=== PATIENT | female | born 1935 | race Caucasian/White ===

== ENCOUNTER 2019-06-18 19:58 | Inpatient (IN) ==
[2019-06-18] MEDS ORDERED: VANCOMYCIN 1 GM/NS 1 GM/250 ML IVPB IV ONE (20:34)
[2019-06-18] MEDS ORDERED: ZOSYN 4.5 GM in NS 100 ML IV ONE (20:34)
[2019-06-18] MEDS ORDERED: NS 1,000 ML IV ONE ×2 (20:35→21:18)
[2019-06-18] MEDS ORDERED: SOLU-MEDROL IV ONE (20:36)
[2019-06-18 20:46] LABS: ALLEN TEST YES; BE 8.1 mmoll (-3.0-3.0); BLOOD TYPE ARTERIAL; HCO3-(ACT) 31.2 mmoll (20.0-26.0); METHB 0.9 % (0.0-1.5); O2HB 96.2 % (95.0-99.0); PCO2(98.6) 45 mmHg (35-45); PO2(98.6) 94 mmHg (60-100); SAMPLE BLOOD; SAO2 99.1 % (95.0-100.0); THB 12.5 g/dL (11.5-17.4); pH(98.6) 7.47 (7.35-7.45)
[2019-06-18 20:47] LABS: MODALITY NRB
--- NOTE | 2019-06-18 20:59 | EKG Report ---
Test Performed on : 06/18/2019 8:20:29 PM Test Reason : SOB Blood Pressure : / mmHG Vent. Rate : 121 BPM Atrial Rate : 121 BPM P-R Int : 200 ms QRS Dur : 092 ms QT Int : 322 ms P-R-T Axes : 094 028 019 degrees QTc Int : 457 ms Sinus tachycardia. Low voltage QRS Inferior infarct , age undetermined Abnormal ECG No previous ECGs available Unconfirmed Result
[2019-06-18 21:04] LABS: BASO# 0.04 X1000 (0.0-0.2); BASO% 0.2 % (0.0-0.8); HEMATOCRIT 38.6 % (37.0-47.0); IMM GRAN# 0.16 X1000 (0.0-0.04); IMM GRAN% 0.8 % (0.0-0.5); LYMPH# 1.71 X1000 (1.2-3.4); LYMPH% 8.9 % (20.5-51.1); MCH 29.4 PG (27-31); MCHC 31.1 g/dL (33-37); MCV 94.6 FL (81-99); MONO# 1.04 X1000 (0.11-0.59); MONO% 5.4 % (1.7-9.3); NEUT% 84.7 % (42.2-75.2); PLT 357 X1000 (130-400); RBC 4.08 XMIL (4.2-5.4); RDW 13.8 % (11.5-14.5); WBC 19.25 X1000 (4.8-10.8)
[2019-06-18 21:04] LABS: URINE SOURCE CATH
--- NOTE | 2019-06-18 21:05 | Diag Imaging Result Doc PS360 ---
CHEST-1 VIEW - 06/18/2019 INDICATION: SOB COMPARISON: 06/05/2019 FINDINGS: Stable cardiomegaly and pulmonary vascular congestion. There is worsening diffuse bilateral interstitial infiltrate compatible with pulmonary edema. There is a small to moderate left pleural effusion. IMPRESSION: Congestive heart failure. Electronically signed by Michele Rodriguez 06/18/2019 9:03 PM
[2019-06-18 21:08] LABS: BILIRUBIN URINE NEGATIVE (NEGATIVE); BLOOD URINE NEGATIVE (NEGATIVE); COLOR YELLOW; GLUCOSE URINE NEGATIVE (NEGATIVE); KETONE URINE NEGATIVE (NEGATIVE); LEUKOCYTES URINE NEGATIVE (NEGATIVE); NITRITE URINE NEGATIVE (NEGATIVE); PROTEIN URINE NEGATIVE (NEGATIVE); SP GRAVITY URINE 1.013; TURBIDITY URINE CLEAR (CLEAR); UROBILINOGEN URINE NORMAL (NORMAL)
[2019-06-18 21:09] LABS: UR EPITHELIAL CELLS <10 /HPF (<10); URINE BACTERIA NEGATIVE /HPF; URINE RBC <10 /HPF (<10); URINE WBC <10 /HPF (<10)
[2019-06-18 21:11] LABS: INR 1.05; PROTIME 13.9 Seconds (11.0-16.0); PTT 21.1 Seconds (22.3-41.8)
[2019-06-18] MEDS ORDERED: LASIX IV ONE (21:18)
[2019-06-18 21:34] LABS: ALB/GLOB RATIO 0.6; ALBUMIN 2.9 g/dL (3.5-5.0); CALCIUM 10.3 mg/dL (8.8-10.2); CREATININE 0.9 mg/dL (0.5-0.9); MAGNESIUM 0.9 mg/dL (1.5-2.7); POTASSIUM 4.3 mmol/L (3.5-5.1); TOTAL BILIRUBIN 0.34 mg/dL (0.20-1.00); TOTAL PROTEIN 7.6 g/dL (6.3-8.3)
[2019-06-18] MEDS ORDERED: MAGNESIUM SULFATE 2 GM/S.W.I. 2 GM/50 ML IVPB IV ONE (22:04)
[2019-06-18] MEDS ORDERED: HUMULIN R IV ONE (22:08)
--- NOTE | 2019-06-18 22:14 | PROVIDER DOCUMENTATION ---
This chart was entered by Bella Medina Scribe, acting as scribe for Rich Jon MD. HPI-Respiratory General - General Chief Complaint: Shortness of Breath Stated Complaint: sob Time Seen by Provider: 06/18/19 20:29 Source: patient, EMS Allergies/Adverse Reactions: Patient Allergies Allergy/AdvReac Type Severity Reaction Status Date / Time bee venom protein (honey bee) Allergy SWELLING Verified 06/18/19 20:50 - History of Present Illness-Resp Nature of Presenting Problem: pt is a 83 yr old female presenting via EMS from [facility] with complaint of shortness of breath, pt admits she is on 3LPM home o2, this evening began having increased shortness of breath, no relief with 4 duoneb tx. pt denies any other complaints Quality of Pain: reports: none Severity in ED: reports: moderate Onset/Duration: reports: this evening Timing: reports: still present Exposure: reports: unknown cause Cough Quality/Degree: reports: no cough Episode Frequency: occasional episodes Current Respiratory Medication Therapy: Initiated see nurses note Modifying Factors: improves with: albuterol nebulizer (no improvement), lying down (worsens), oxygen (no improvement) Associated Symptoms: reports: shortness of breath, wheezing. denies: chest pain/soreness, fever/chills, flu-like symptoms Similar Symptoms Previously?: No Recently seen or treated by another doctor?: No Review of Systems - Adult - REVIEW OF SYSTEMS - ADULT Constitutional: denies: chills, fever Eyes: reports: no symptoms reported Ears, Nose, Mouth & Throat: denies: ear pain, sinus problem, throat pain Cardiovascular: denies: chest pain, palpitations, syncope Respiratory: reports: dyspnea on exertion, shortness of breath, wheezing. denies: cough Gastrointestinal: reports: no symptoms reported Genitourinary: denies: dysuria, frequency, flank pain Musculoskeletal: denies: back pain, muscle aches, neck pain Integumentary: reports: no symptoms reported Neurological: denies: dizziness/vertigo, headache/migraines, syncope Psychiatric: reports: no symptoms reported Endocrine: reports: no symptoms reported Hematologic/Lymphatic: reports: no symptoms reported Allergic/Immunologic: reports: no symptoms reported All Other Systems: Reviewed and Negative Past History - Adult - PAST MEDICAL HISTORY-ADULT Review of Records: reports: Old Records Reviewed, Nursing Assessment Review, Medications Reviewed, Social history reviewed & non-contributory. Major Childhood Illnesses: reports: denies history Cardiovascular: reports: denies history Respiratory: reports: denies history Gastrointestinal: reports: denies history Obstetrical/Gynecological: reports: denies history Genitourinary: reports: denies history Musculoskeletal: reports: denies history Neurological: reports: denies history Endocrine/Immune: reports: denies history Other Conditions: reports: denies history - IMMUNIZATION STATUS Childhood Immunizations: See Nurse Assessment Flu Vaccine: See Nurse Assessment - FAMILY HISTORY Family History: reviewed, not pertinent - SOCIAL HISTORY Smoking: quit greater than 1 year Substance Use: denies Living Situation: care facility ([facility]) Physical Exam-General - PHYSICAL EXAM-ADULT Initial Vital Signs Reviewed: Yes - CONSTITUTIONAL General Appearance: alert, mild distress, obese - EYES Eyes: other (left pupil malformed) - HEAD, EARS, NOSE, MOUTH & THROAT HENMT: normocephalic/atraumatic, moist mucous membranes - NECK Neck: non-tender, full range of motion, supple, normal inspection - RESPIRATORY Respiratory: chest non-tender, rhonchi (all reyna), increased rate - CARDIOVASCULAR Cardiovascular: tachycardia. negative: no edema (bi LE edema) - GASTROINTESTINAL (ABDOMEN) Abdominal Exam: normal bowel sounds, hernia (reducable, non tender hernia) - LYMPHATIC Lymphatic: no adenopathy - MUSCULOSKELETAL Back Exam: normal inspection Extremity: normal range of motion, non-tender, pedal edema - SKIN Integumentary: normal color, normal turgor, warm/dry - NEUROLOGIC Neurologic: grossly normal, no motor/sensory deficits - PSYCHIATRIC Psych/Mental Status: normal mood/affect Progress - PLAN OF CARE/RESULTS Progress/Plan/Lab Results: Vital Signs - 8 hr 06/18/19 20:09 06/18/19 20:20 06/18/19 21:38 Temperature 99.2 F Pulse Rate 111 H 112 H 115 H Respiratory Rate 24 24 24 Blood Pressure 112/80 112/80 123/77 O2 Sat by Pulse Oximetry 90 L 96 98 06/18/19 21:05 Influenza Screen - Final Nasopharyngeal Laboratory Results - last 24 hr 06/18/19 06/18/19 06/18/19 20:34 20:38 20:38 WBC 19.25 H RBC 4.08 L Hgb 12.0 Hct 38.6 MCV 94.6 MCH 29.4 MCHC 31.1 L RDW Std Deviation 13.8 Plt Count 357 MPV 10.0 Immature Gran % (Auto) 0.8 H Neut % (Auto) 84.7 H Lymph % (Auto) 8.9 L Clay % (Auto) 5.4 Eos % (Auto) 0.0 Baso % (Auto) 0.2 Immature Gran # (Auto) 0.16 H Neut # (Auto) 16.30 H Lymph # (Auto) 1.71 Clay # (Auto) 1.04 H Eos # (Auto) 0.00 Baso # (Auto) 0.04 PT INR PTT (Actin FS) Specimen Type ARTERIAL Sample Site R RADIAL pH 7.47 H pCO2 45 pO2 94 HCO3 31.2 H Base Excess 8.1 H Oxyhemoglobin 96.2 ABG O2 Sat (Calculated) 17.0 ABG O2 Saturation 99.1 ABG Carboxyhemoglobin 2.00 ABG Methemoglobin 0.9 Andrey Test YES A-a O2 Difference 563.0 Total Hemoglobin 12.5 Lactate 3.50 H Liter Flow 15.0 Blood Gas Modality NRB FiO2 % 100.0 Sodium 131 L Potassium 4.3 Chloride 86 L Carbon Dioxide 30 Anion Gap 15 BUN 21 Creatinine 0.9 Estimated GFR/1.73 m2 60 BUN/Creatinine Ratio 23 Glucose 352 H Calculated Osmolality 280 Calcium 10.3 H Magnesium 0.9 L* Total Bilirubin 0.34 AST 22 ALT 13 Alkaline Phosphatase 75 Creatine Kinase 32 Troponin T High Sens Rpe-H-Gbqkjcefknj Pept Total Protein 7.6 Albumin 2.9 L Globulin 4.7 Albumin/Globulin Ratio 0.6 Plasma Lactate Urine Source Urine Color Urine Turbidity Urine pH Ur Specific [place] Urine Protein Ur Glucose (Stick) Ur Ketones (Stick) Urine Blood Urine Nitrite Urine Bilirubin Urobilinogen Dipstick Urine Leukocytes Urine WBC (Auto) Urine RBC (Auto) U Epithel Cells (Auto) Urine Bacteria (Auto) 06/18/19 06/18/19 06/18/19 20:38 20:38 20:38 WBC RBC Hgb Hct MCV MCH MCHC RDW Std Deviation Plt Count MPV Immature Gran % (Auto) Neut % (Auto) Lymph % (Auto) Clay % (Auto) Eos % (Auto) Baso % (Auto) Immature Gran # (Auto) Neut # (Auto) Lymph # (Auto) Clay # (Auto) Eos # (Auto) Baso # (Auto) PT 13.9 INR 1.05 PTT (Actin FS) 21.1 L Specimen Type Sample Site pH pCO2 pO2 HCO3 Base Excess Oxyhemoglobin ABG O2 Sat (Calculated) ABG O2 Saturation ABG Carboxyhemoglobin ABG Methemoglobin Andrey Test A-a O2 Difference Total Hemoglobin Lactate Liter Flow Blood Gas Modality FiO2 % Sodium Potassium Chloride Carbon Dioxide Anion Gap BUN Creatinine Estimated GFR/1.73 m2 BUN/Creatinine Ratio Glucose Calculated Osmolality Calcium Magnesium Total Bilirubin AST ALT Alkaline Phosphatase Creatine Kinase Troponin T High Sens 19 Mlt-C-Mgracbacjie Pept Total Protein Albumin Globulin Albumin/Globulin Ratio Plasma Lactate 3.7 H Urine Source Urine Color Urine Turbidity Urine pH Ur Specific [place] Urine Protein Ur Glucose (Stick) Ur Ketones (Stick) Urine Blood Urine Nitrite Urine Bilirubin Urobilinogen Dipstick Urine Leukocytes Urine WBC (Auto) Urine RBC (Auto) U Epithel Cells (Auto) Urine Bacteria (Auto) 06/18/19 06/18/19 20:38 21:00 WBC RBC Hgb Hct MCV MCH MCHC RDW Std Deviation Plt Count MPV Immature Gran % (Auto) Neut % (Auto) Lymph % (Auto) Clay % (Auto) Eos % (Auto) Baso % (Auto) Immature Gran # (Auto) Neut # (Auto) Lymph # (Auto) Clay # (Auto) Eos # (Auto) Baso # (Auto) PT INR PTT (Actin FS) Specimen Type Sample Site pH pCO2 pO2 HCO3 Base Excess Oxyhemoglobin ABG O2 Sat (Calculated) ABG O2 Saturation ABG Carboxyhemoglobin ABG Methemoglobin Andrey Test A-a O2 Difference Total Hemoglobin Lactate Liter Flow Blood Gas Modality FiO2 % Sodium Potassium Chloride Carbon Dioxide Anion Gap BUN Creatinine Estimated GFR/1.73 m2 BUN/Creatinine Ratio Glucose Calculated Osmolality Calcium Magnesium Total Bilirubin AST ALT Alkaline Phosphatase Creatine Kinase Troponin T High Sens Uii-S-Mnjnfvqikuz Pept 426 Total Protein Albumin Globulin Albumin/Globulin Ratio Plasma Lactate Urine Source CATH Urine Color YELLOW Urine Turbidity CLEAR Urine pH 6.0 Ur Specific [place] 1.013 Urine Protein NEGATIVE Ur Glucose (Stick) NEGATIVE Ur Ketones (Stick) NEGATIVE Urine Blood NEGATIVE Urine Nitrite NEGATIVE Urine Bilirubin NEGATIVE Urobilinogen Dipstick NORMAL Urine Leukocytes NEGATIVE Urine WBC (Auto) <10 Urine RBC (Auto) <10 U Epithel Cells (Auto) <10 Urine Bacteria (Auto) NEGATIVE Orders Category Date Time Status Cardiac Monitoring DIRECTED Care 06/18/19 20:33 Active IV Insertion ORDERED Care 06/18/19 20:33 Completed Notify Physician As Ordered Care 06/18/19 20:33 Active Nursing- Obtain EKG once Care 06/18/19 20:34 Active CHEST-1 VIEW [RAD] Stat Exams 06/18/19 20:33 Completed ABG [RESP] Routine Lab 06/18/19 20:34 Completed BLOOD CULTURE [BLDCUL] Stat Lab 06/18/19 20:38 Results CBC WITH DIFF [HEME] Stat Lab 06/18/19 20:38 Completed CK PROFILE [SP CHEM] Stat Lab 06/18/19 20:38 Completed COMPREHENSIVE METABOLIC PANEL [CHEM] Stat Lab 06/18/19 20:38 Completed INFLUENZA SCREEN A/B Stat Lab 06/18/19 21:05 Completed LACTATE, PLASMA [CHEM] Lab 06/18/19 23:45 Uncollected LACTATE, PLASMA [CHEM] Lab 06/19/19 02:45 Uncollected LACTATE, PLASMA [CHEM] Q3H Lab 06/18/19 20:38 Completed MAGNESIUM [CHEM] Stat Lab 06/18/19 20:38 Completed PRO B-NATRIURETIC PEPTIDE Stat Lab 06/18/19 20:38 Completed PROTIME WITH INR [COAG] Stat Lab 06/18/19 20:38 Completed PTT [COAG] Stat Lab 06/18/19 20:38 Completed TROPONIN T HIGH SENSITIVITY Stat Lab 06/18/19 20:38 Completed URINALYSIS W/POSS RFLX CULT [URINALYSIS] Stat Lab 06/18/19 21:00 Completed 0.9% Sodium Chloride Inj [Ns] 1,000 ml Med 06/18/19 20:35 Discontinued IV 999 mls/hr 0.9% Sodium Chloride Inj [Ns] 1,000 ml Med 06/18/19 21:18 Active IV 999 mls/hr Furosemide [Lasix] Med 06/18/19 21:18 Discontinued 80 mg IV NOW ONE Magnesium Sulfate 2 gm/50 ml Over 1 Hr Med 06/18/19 22:04 Ordered Magnesium Sulfate 2 gm/S.w.i. 2 gm in 50 ml IV NOW Methylprednisolone Sod Succ [Solu-Medrol] Med 06/18/19 20:36 Discontinued 125 mg IV NOW ONE Piperacillin/Tazobactam [Zosyn] 4.5 gm Med 06/18/19 20:34 Discontinued 0.9% Sodium Chloride Inj [Ns] 100 ml IV NOW Vancomycin 1 gm/Ns Med 06/18/19 20:34 Discontinued 1 gm in 250 ml IV NOW Oxygen Device Stat Oth 06/18/19 20:33 Active EKG [EKG] Stat Ther 06/18/19 20:34 Draft Result Diagrams: 06/18/19 20:38 06/18/19 20:38 - REASSESSMENT Reassessment #1 Time Reassessed: 22:07 Status: improving (with oxgen. GIvne Vanc/zosyn for sepsis. GIven IV lasix for CHF, given Mag Sulfate for hypomagnesemia, given IV insulin for hyperglycemia) - EKG 1 Time of EKG reading by physician:: 20:29 EKG Read and Signed by:: Rich Jon EKG Interpretation (*Must complete 3 of following elements*): Abnormal (inferior infacrt-age undetermined 1st degree av block) Rate: 121 Rhythm: sinus tach QRS: other (low voltage) ST Wave: non-specific ST changes - XRAY 1 XRAY Study: Chest Impression: Abnormal, See EMR Report ( CHEST-1 VIEW - 06/18/2019 INDICATION: SOB COMPARISON: 06/05/2019 FINDINGS: Stable cardiomegaly and pulmonary vasc ular congestion. There is worsening diffuse bilateral interstitial infiltrate compatible with pulmonary edema. There is a small to moderate left pleural effusion. IMPRESSION: Congestive heart failure. Electronically signed by Michele Rodriguez 06/18/2019 9:03 PM [id number]/[id number] Interpreting Physician: Michele Rodriguez MD Dictated Date/Time: 06/18/192101 cc: Rich Jon MD;) - CONSULTS/PCP/HOSPITALIST Notification #1 *Consult/PCP/Hospitalist*: Bonilla Time Discussed: 22:13 Consult Disposition: Will see in ED, Admit Departure - Departure Date of Disposition Decision: 06/18/19 Time of Disposition Decision: 22:13 DIAGNOSIS: Respiratory distress, acute, Sepsis due to pneumonia, Hypomagnesemia syndrome, Type 2 diabetes mellitus with hyperglycemia, without long-term current use of insulin Disposition: ADMITTED INPATIENT 09 Certified Medical Emergency: Emergent Condition: Fair - Critical Care Note This patient required my direct & personal management of CC.: Yes Total Time (mins): 40 Critical Care Statement: This patient required my direct personal management to treat or rule out processes, the absence of which, could potentiallly result in sudden, clinically significant life or limb threatening deterioration. Attestation - Physician/ MO Attestation Patient care was provided by Advanced Practice Provider:: No The physician spent face to face time with patient:: Yes Advanced Practice Provider documentation review:: Supervising physician onsite a nd consulted in the evaluation and care of this patient. The physician did have a face to face encounter with the patient. This chart was documented by the indicated scribe, (Bella Medina, Aurelio) and accurately reflects the services I performed and decisions made by me, Rich Jon MD, as attested by the provider's signature.
[2019-06-19] MEDS ORDERED: ZOFRAN IV PRN (00:08)
[2019-06-19] MEDS ORDERED: VANCOMYCIN IV PER PHARMACY MISC SCH (00:08)
[2019-06-19] MEDS ORDERED: VANCOMYCIN 1 GM/NS 1 GM/250 ML IVPB IV ONE (01:00)
[2019-06-19] MEDS: ZOSYN 3.375 GM in NS 50 ML IV SCH ×4 (02:59→22:19)
[2019-06-19] MEDS: LASIX IV SCH ×2 (02:59→16:45)
[2019-06-19 04:59] LABS: BASO# 0.03 X1000 (0.0-0.2); BASO% 0.2 % (0.0-0.8); HEMATOCRIT 37.9 % (37.0-47.0); HEMOGLOBIN 11.8 g/dL (12.0-16.0); IMM GRAN% 0.7 % (0.0-0.5); LYMPH# 0.78 X1000 (1.2-3.4); LYMPH% 5.4 % (20.5-51.1); MCH 29.6 PG (27-31); MCHC 31.1 g/dL (33-37); MONO# 0.23 X1000 (0.11-0.59); MONO% 1.6 % (1.7-9.3); MPV 9.8 FL (7.4-10.4); NEUT% 92.1 % (42.2-75.2); PLT 300 X1000 (130-400); RBC 3.99 XMIL (4.2-5.4); RDW 13.8 % (11.5-14.5); WBC 14.44 X1000 (4.8-10.8)
[2019-06-19 05:03] LABS: CALCIUM 9.9 mg/dL (8.8-10.2); CREATININE 0.9 mg/dL (0.5-0.9); POTASSIUM 3.7 mmol/L (3.5-5.1)
--- NOTE | 2019-06-19 08:08 | HISTORY AND PHYSICAL ---
PRIMARY CARE PHYSICIAN: None. CHIEF COMPLAINT: Shortness of breath. HISTORY OF PRESENTING ILLNESS: An 83-year-old female who is a resident of [facility], with a history of gout, gout, dementia, hyperlipidemia, hypertension, CHF, and COPD, who was brought to the emergency department due to the patient having shortness of breath. While the patient was at the retirement, she was desaturating, and staff members stated that she had a fever. She was evaluated in the emergency department. She had imaging done, which did raise the possibility of pneumonia. Subsequently, she will require admission for further management. During initial evaluation, it was also found that she had low magnesium, and this was replaced in the ED. The patient is a poor historian. Most of the history is obtained from her daughter. PAST MEDICAL HISTORY: Includes hypothyroidism, gout, GERD, COPD, rheumatoid arthritis, dementia, CHF, hyperlipidemia, hypertension. PAST SURGICAL HISTORY: Cataract surgery and possible right eye surgery. ALLERGIES: Bee venom. CURRENT MEDICATIONS: She does not recall, and nursing staff will reconcile. SOCIAL HISTORY: She is a former smoker. No history of alcohol or illicit drug use. FAMILY HISTORY: No history of coronary disease. REVIEW OF SYSTEMS: Limited. PHYSICAL EXAMINATION: GENERAL: The patient is resting more comfortably now. VITAL SIGNS: Temperature 99.2 degrees, pulse 111, respirations 24, blood pressure 112/80. HEENT: Atraumatic, normocephalic. NECK: No masses. CHEST: Rhonchi. CARDIOVASCULAR: Regular rate and rhythm. ABDOMEN: Soft. Positive bowel sounds. EXTREMITIES: Trace edema. NEUROLOGIC: She is awake, alert, oriented x1. : No bladder distention. SKIN: Warm. IMAGING AND LABORATORY DATA: WBCs 19.25, hemoglobin 12.1, hematocrit 38.6, platelets 357,000. Sodium 131, potassium 4.3, chloride 86, CO2 is 30, BUN is 21, creatinine 0.9, glucose 352. Magnesium is 0.9. Chest x-ray shows CHF. ASSESSMENT: An 83-year-old, elderly female with a history of hypothyroidism, gout, chronic obstructive pulmonary disease, dementia, and hypertension, who was brought to the emergency department due to the patient having shortness of breath. She was evaluated in the emergency department, and it was suspected that possibly she had pneumonia. Subsequently, she will require admission for further management. 1. Probable pneumonia. 2. Early sepsis. 3. Suspected congestive heart failure, unspecified. 4. Hypomagnesemia. 5. Hypertension. PLAN: 1. Will admit the patient to medical floor with telemetry. 2. Will check blood cultures. Start the patient on IV antibiotics. 3. Will continue with gentle diuresis with Lasix, and check echocardiogram, and consult tax senior associate. 4. Will replace her magnesium, and monitor. 5. Will monitor blood pressure closely. 6. Put the patient on DVT prophylaxis with SCDs. 7. Will continue to follow, reassess, and make further recommendations based on the patient's clinical course. cc: Travis Crystal MD
[2019-06-19 10:09] LABS: HEMOGLOBIN A1C 8.1 % (4.8-6.0)
[2019-06-19] MEDS ORDERED: HUMALOG SUBQ SCH (11:00)
[2019-06-19] MEDS: HUMALOG SUBQ SCH ×3 (11:30→22:21)
--- NOTE | 2019-06-19 12:50 | PROGRESS NOTE ---
DATE: 06/19/2019 INTERVAL HISTORY: Patient with still pretty significant nonproductive cough and dyspnea with minimal exertion. She remains afebrile. No acute events overnight. REVIEW OF SYSTEMS: Negative except as per interval history. LABORATORY: WBC 14.4, hemoglobin 11.8, hematocrit 37.9, platelets 300. Sodium 139, potassium 3.7, BUN 20, creatinine 0.9, glucose 467. Lactate 2.2. VITAL SIGNS: T-max 98.9, pulse 73, blood pressure 122/50, O2 saturation 100% on nonrebreather. PHYSICAL EXAMINATION: General: No acute distress. Vital signs: As above. HEENT: Normocephalic, atraumatic. On nonrebreather. Cardiac: Regular rate and rhythm. No murmurs noted. Pulmonary: Diffuse rales and rhonchi throughout. Slightly decreased air entry. Abdomen: Soft, nontender, nondistended, bowel sounds positive. Extremities: Peripheral pulses intact, trace to 1+ pitting edema of bilateral legs. Neurologic: Cranial nerves grossly intact. No focal deficits found. Psychiatric: Normal mood and affect. Awake, alert, cooperative. ASSESSMENT AND PLAN: 1. [id number] hypoxic respiratory failure, [id number] congestive heart failure, possible pneumonia. The patient admitted with worsening dyspnea and hypoxia beyond baseline. Patient on 3 L of oxygen at home. Chest x-ray showing pulmonary vascular congestion, worsening diffuse bilateral infiltrates most consistent with pulmonary edema, but patient also with marked leukocytosis and BNP only mildly elevated at 426 so there is concern for a component of pneumonia as well. Giving Lasix for diuresis and on empiric antibiotics with vancomycin and Zosyn, which we will continue. No wheezing currently. Obtaining echocardiogram to clarify patient's ejection fraction. There is no old echocardiogram in our system. Continue monitoring closely. 2. Diabetes, pretty significant hyperglycemia. Starting on low-dose basal insulin and sliding scale and will monitor. 3. Hyponatremia, resolved. Will monitor. 4. Hypomagnesemia currently being repleted. Will recheck in the morning. 5. Elevated lactate, resolved. 6. Hypothyroidism. Continue Synthroid. 7. Chronic pain. Restart home Tramadol. 8. chronic obstructive pulmonary disease. patient with history of chronic obstructive pulmonary disease. on a couple inhalers at home and on 3 L of oxygen so Not wheezing and reasonable air entry currently. She does not appear to be in exacerbation. Monitor. MTDD
[2019-06-19] MEDS: LANTUS INSULIN SUBQ SCH (16:39)
[2019-06-19] MEDS: LIPITOR PO SCH (22:20)
[2019-06-19] MEDS: ULTRAM PO PRN (22:21)
--- NOTE | 2019-06-19 23:56 | ECHO REPORT ---
ORDER DATE: 06/19/2019 MEASUREMENTS: Septal thickness 0.9. Left ventricular internal diameter in diastole 5.4, posterior wall thickness 0.9. Left ventricular internal diameter in systole 3.5, aortic root 3.5, left atrium 4.4. SUMMARY: 1. Technically difficult study due to limited acoustic window quality. 2. The aortic valve is trileaflet and opens adequately on 2-dimensional images. The peak gradient across the aortic valve by Doppler is less than 10 mmHg. There is very mild aortic regurgitation. Mitral and tricuspid valves are without evidence of structural abnormality while pulmonic valve is not well demonstrated. There is trace mitral regurgitation and trace tricuspid regurgitation. The aortic root is normal size. 3. Normal left ventricular dimensions demonstrated. The estimated left ventricular ejection fraction appears to be at least 60%. No obvious regional wall motion abnormality can be appreciated. The left atrium is mildly enlarged. The right atrium and right ventricle are normal in size with normal right ventricular systolic function. 4. No pericardial effusion. 5. Appearance of inferior vena cava suggests normal central venous pressure. CONCLUSIONS: 1. Technically difficult study. 2. Very mild aortic regurgitation. 3. Normal left ventricular systolic function without wall motion abnormality evident. 4. Mild left atrial enlargement. cc: MD Travis Crowley MD
[2019-06-20] MEDS: ZOSYN 3.375 GM in NS 50 ML IV SCH ×6 (03:00→20:59)
[2019-06-20] MEDS: LASIX IV SCH ×2 (04:30→18:40)
[2019-06-20] MEDS: HUMALOG SUBQ SCH ×4 (06:43→20:59)
[2019-06-20] MEDS: SYNTHROID PO SCH (06:44)
[2019-06-20 08:25] LABS: BASO# 0.03 X1000 (0.0-0.2); BASO% 0.2 % (0.0-0.8); EOS% 0.7 % (0.0-10.0); HEMATOCRIT 37.6 % (37.0-47.0); HEMOGLOBIN 11.5 g/dL (12.0-16.0); IMM GRAN# 0.12 X1000 (0.0-0.04); IMM GRAN% 0.8 % (0.0-0.5); LYMPH# 2.23 X1000 (1.2-3.4); LYMPH% 15.8 % (20.5-51.1); MCH 29.1 PG (27-31); MCHC 30.6 g/dL (33-37); MCV 95.2 FL (81-99); MONO% 5.7 % (1.7-9.3); MPV 9.9 FL (7.4-10.4); NEUT# 10.86 X1000 (1.4-6.5); NEUT% 76.8 % (42.2-75.2); PLT 324 X1000 (130-400); RBC 3.95 XMIL (4.2-5.4); RDW 13.8 % (11.5-14.5); WBC 14.14 X1000 (4.8-10.8)
[2019-06-20] MEDS: CYMBALTA PO SCH (08:36)
[2019-06-20] MEDS: LANTUS INSULIN SUBQ SCH (08:37)
[2019-06-20] MEDS: ZYLOPRIM PO SCH (08:37)
[2019-06-20] MEDS: ASPIRIN PO SCH (08:37)
[2019-06-20 09:05] LABS: AGAP 9; BUN 21 mg/dL (8-22); CALCIUM 9.5 mg/dL (8.8-10.2); CHLORIDE 92 mmol/L (98-107); COSMO 286; CREATININE 0.8 mg/dL (0.5-0.9); ESTIMATED GFR > 60; GLUCOSE 194 mg/dL (70-104); MAGNESIUM 1.3 mg/dL (1.5-2.7); POTASSIUM 2.8 mmol/L (3.5-5.1); SODIUM 139 mmol/L (136-145); TCO2 38 mmol/L (25-35)
[2019-06-20] MEDS: VANCOMYCIN 1,800 MG in NS 500 ML IV SCH (14:05)
--- NOTE | 2019-06-20 18:51 | PROGRESS NOTE ---
DATE: 06/20/2019 SUBJECTIVE: This morning Ms. Michelle referred to be doing fairly okay. Still continues to be coughing, bringing up some yellowish sputum but otherwise, no new complaints. OBJECTIVE: Vital signs: Blood pressure is 140/52, pulse of 60, respirations 24, temperature 97.6 degrees. General: Ms. Michelle is an 83-year-old female. She is in bed, no distress. HEENT: Mucosa is pink and moist. Anicteric. Acyanotic. Neck: Supple. Chest: Good air entry bilaterally. There are bilateral crackles in the posterior lung reyna. Cardiovascular: Regular rate and rhythm. There are no murmurs, no rubs, no gallops. GI: Abdomen was soft, distended. There is a small umbilical hernia noted. Extremities: No pedal edema. CONTROL TOWER OPERATOR: Patient is awake, alert, and oriented. DIAGNOSTIC STUDIES: The patient's chest x-ray yesterday did show congestive heart failure. Echocardiogram shows an ejection fraction of 60% without any motion abnormality. ASSESSMENT: 1. Acute on chronic hypoxemic respiratory failure. Normally Ms. Michelle uses 2 L of supplemental oxygen at home. Up until yesterday she was on 15 Venturi mask. This has been transitioned down to about 3 L this morning. 2. Pulmonary edema, presumably from congestive heart failure with preserved ejection fraction. 3. Multifocal pneumonia. Patient has been started on Zosyn with vancomycin. 4. Diabetes mellitus. Presenting A1c of 8.1. Patient is on insulin regimen for now. 5. Electrolyte abnormality including hypomagnesemia and hypopotassemia. This will be replaced. cc: Tj Lee MD
[2019-06-20] MEDS: LIPITOR PO SCH (20:59)
[2019-06-21] MEDS: ZOSYN 3.375 GM in NS 50 ML IV SCH ×4 (04:01→20:59)
[2019-06-21] MEDS: LASIX IV SCH (04:02)
[2019-06-21] MEDS: HUMALOG SUBQ SCH ×4 (06:12→20:56)
[2019-06-21] MEDS: SYNTHROID PO SCH (06:13)
[2019-06-21 08:13] LABS: BASO# 0.04 X1000 (0.0-0.2); BASO% 0.4 % (0.0-0.8); EOS# 0.14 X1000 (0.0-0.7); EOS% 1.3 % (0.0-10.0); HEMATOCRIT 38.8 % (37.0-47.0); HEMOGLOBIN 12.1 g/dL (12.0-16.0); IMM GRAN% 0.9 % (0.0-0.5); LYMPH# 1.44 X1000 (1.2-3.4); MCH 29.7 PG (27-31); MCHC 31.2 g/dL (33-37); MCV 95.1 FL (81-99); MONO% 5.4 % (1.7-9.3); MPV 9.8 FL (7.4-10.4); NEUT# 8.79 X1000 (1.4-6.5); PLT 348 X1000 (130-400); RBC 4.08 XMIL (4.2-5.4); RDW 13.7 % (11.5-14.5); WBC 11.11 X1000 (4.8-10.8)
[2019-06-21 08:41] LABS: AGAP 12; BUN 19 mg/dL (8-22); CALCIUM 9.9 mg/dL (8.8-10.2); CHLORIDE 91 mmol/L (98-107); COSMO 285; CREATININE 0.8 mg/dL (0.5-0.9); ESTIMATED GFR > 60; GLUCOSE 194 mg/dL (70-104); POTASSIUM 2.6 mmol/L (3.5-5.1); SODIUM 139 mmol/L (136-145); TCO2 36 mmol/L (25-35)
[2019-06-21] MEDS: CYMBALTA PO SCH (09:30)
[2019-06-21] MEDS: ZYLOPRIM PO SCH (09:31)
[2019-06-21] MEDS: ASPIRIN PO SCH (09:31)
[2019-06-21] MEDS: LANTUS INSULIN SUBQ SCH (09:36)
--- NOTE | 2019-06-21 10:47 | Diag Imaging Result Doc PS360 ---
EXAM: CT THORAX W/CONTRAST 06/21/2019 HISTORY: Respiratory failure TECHNIQUE: This exam was performed using automated exposure control, adjustment of mA or kV according to patient size, and/or use of iterative reconstruction technique. COMMENT: There are no previous studies available for comparison. There are atherosclerotic calcifications in the aorta and coronary arteries. There is no evidence of aortic aneurysm or dissection. There is good opacification of most of the pulmonary artery branches and no definite filling defects are demonstrated. There is severe COPD. Some pleural thickening is seen posteriorly over the left upper lobe. There is apparent pleural and parenchymal fibrosis laterally in the right upper lobe around image 134. There is a somewhat spiculated opacity in the right upper lobe on image 57. There is atelectasis or fibrosis in the medial right middle lobe. There are alveolar opacities posteriorly in both lower lobes particularly the left lower lobe. The liver is somewhat hypodense suggesting fatty change. There is apparent hyperplasia of the left adrenal gland. No evidence of significant adenopathy is present. The regional skeleton is intact. IMPRESSION: Bilateral lower lobe pneumonia. Pneumonia versus mass in the right upper lobe. Severe COPD. Comparison with previous studies if available would be helpful. Otherwise, advise follow-up examinations following treatment. Electronically signed by Dany Dumont 06/21/2019 10:45 AM
[2019-06-21] MEDS ORDERED: PREDNISONE PO ONE (12:57)
[2019-06-21] MEDS ORDERED: KLOR-CON PO ONE (12:59)
[2019-06-21] MEDS ORDERED: DUONEB (A & A) INH PRN (13:07)
--- NOTE | 2019-06-21 15:08 | EKG Report ---
Test Performed on : 06/21/2019 2:38:47 PM Test Reason : Abnormal telemetry reading Blood Pressure : / mmHG Vent. Rate : 089 BPM Atrial Rate : 089 BPM P-R Int : 200 ms QRS Dur : 098 ms QT Int : 382 ms P-R-T Axes : 000 020 028 degrees QTc Int : 464 ms Sinus rhythm. with marked sinus arrhythmia. with occasional premature ventricular complexes. Inferior infarct (cited on or before 18-JUN-2019) ST & T wave abnormality, consider anterior ischemia Abnormal ECG When compared with ECG of 18-JUN-2019 20:20, (Unconfirmed) premature ventricular complexes. are now present Confirmed by Channing Conway MD ([id number]) on 06/22/2019 12:17:00 PM
[2019-06-21] MEDS: ANORO ELLIPTA 62.5-25 MCG INH INH SCH ×2 (15:46)
[2019-06-21] MEDS: DUONEB (A & A) INH SCH ×3 (15:48→22:49)
--- NOTE | 2019-06-21 18:21 | PROGRESS NOTE ---
DATE: 06/21/2019 SUBJECTIVE: I have seen Ms. Michelle today. The daughter was at the bedside at the time of the encounter. Ms. Michelle refers to be feeling a little better. She said her breathing has significantly improved. However, she is still coughing up some yellowish sputum. OBJECTIVE: Vital signs: Blood pressure is 115/51, pulse of 87, respirations 14, temperature is 97.4 degrees. Patient is saturating 96% and kind of drifted down to about 86 later on today. General: Ms. Michelle is an 83-year-old elderly female. She is in bed in no distress. Mucosa is pink and moist. Anicteric. Acyanotic. Neck: Supple. Chest: Air entry is bilaterally reduced. There is still diffuse end expiratory rhonchi and some crackles. Cardiovascular: Regular rate and rhythm. No murmurs, no rubs, no gallops. GI: Abdomen is soft, nontender. Bowel sounds present. Extremities: No pedal edema. POTATO CHIP FRYER: Patient is awake, alert, oriented. There is no focal deficit. LABORATORY DATA: WBC is 11.11, hemoglobin is 12.1, platelet count of 348,000. Chemistry is also reviewed. Potassium is 2.6, bicarb is 26, glucose is 194. A1c was 8.1. DIAGNOSTIC STUDIES: His a CT scan of the lungs which was done today did show bilateral lower lobe pneumonia, some pneumonia versus mass in the right upper lobe, severe COPD. ASSESSMENT: 1. Acute on chronic hypoxemic respiratory failure. Patient continues to be on supplemental oxygen. She normally uses 2 L of oxygen at home. We are going to continue titrating it to her baseline. 2. Multifocal lower lobe pneumonias. Patient is on Zosyn and vancomycin. We will get a sputum culture to see if that can guide us with a treatment. 3. Severe COPD with moderate exacerbation on admission. Patient is on bronchodilation therapy, antibiotics. Steroids have been started today. 4. Diabetes mellitus. The patient is on insulin regimen. 5. Electrolyte abnormality. We will continue to replace. Disposition Ms. Michelle has a bed available at [facility] for rehab and possibly half-way. She is still on a lot of supplemental oxygen, so we are going to continue with her IV antibiotics for another day and start her on steroids and re-evaluate her tomorrow to see if she will be ready for discharge. The patient has been notified. The daughter at the bedside has also been notified and they are both okay to be discharged tomorrow if all stable. Patient will need to repeat CT scan chest after antimicrobial therapy to follow up on the right upper lobe findings. cc: Tj Lee MD MTDD
[2019-06-21] MEDS: LIPITOR PO SCH (20:56)
[2019-06-22] MEDS: VANCOMYCIN 1,800 MG in NS 500 ML IV SCH (01:40)
[2019-06-22] MEDS: ZOSYN 3.375 GM in NS 50 ML IV SCH ×4 (05:12→21:34)
[2019-06-22] MEDS: HUMALOG SUBQ SCH ×4 (06:37→21:35)
[2019-06-22] MEDS: SYNTHROID PO SCH (06:37)
[2019-06-22] MEDS: DUONEB (A & A) INH SCH ×5 (07:46→23:42)
[2019-06-22] MEDS: ANORO ELLIPTA 62.5-25 MCG INH INH SCH (07:47)
[2019-06-22 08:25] LABS: BASO# 0.05 X1000 (0.0-0.2); BASO% 0.5 % (0.0-0.8); EOS# 0.16 X1000 (0.0-0.7); EOS% 1.7 % (0.0-10.0); HEMATOCRIT 37.6 % (37.0-47.0); HEMOGLOBIN 11.6 g/dL (12.0-16.0); IMM GRAN# 0.17 X1000 (0.0-0.04); IMM GRAN% 1.8 % (0.0-0.5); LYMPH# 2.17 X1000 (1.2-3.4); LYMPH% 23.1 % (20.5-51.1); MCH 29.3 PG (27-31); MCHC 30.9 g/dL (33-37); MCV 94.9 FL (81-99); MONO% 6.4 % (1.7-9.3); MPV 9.4 FL (7.4-10.4); NEUT# 6.25 X1000 (1.4-6.5); NEUT% 66.5 % (42.2-75.2); PLT 334 X1000 (130-400); RBC 3.96 XMIL (4.2-5.4)
[2019-06-22] MEDS: CYMBALTA PO SCH (08:38)
[2019-06-22] MEDS: PREDNISONE PO SCH (08:38)
[2019-06-22] MEDS: ASPIRIN PO SCH (08:38)
[2019-06-22] MEDS: ZYLOPRIM PO SCH (08:38)
[2019-06-22] MEDS: LANTUS INSULIN SUBQ SCH (08:41)
[2019-06-22 08:48] LABS: AGAP 11; BUN 13 mg/dL (8-22); CALCIUM 9.7 mg/dL (8.8-10.2); CHLORIDE 97 mmol/L (98-107); COSMO 285; CREATININE 0.6 mg/dL (0.5-0.9); ESTIMATED GFR > 60; GLUCOSE 135 mg/dL (70-104); POTASSIUM 2.8 mmol/L (3.5-5.1); SODIUM 142 mmol/L (136-145); TCO2 34 mmol/L (25-35)
[2019-06-22] MEDS ORDERED: KLOR-CON PO ONE (13:48)
[2019-06-22] MEDS ORDERED: CALMOSEPTINE OINTMENT TOP PRN (15:34)
--- NOTE | 2019-06-22 15:34 | PROGRESS NOTE ---
DATE: 06/22/2019 SUBJECTIVE: I evaluated Ms. Michelle, and I discussed the results of the CT scan today. It was mentioned that she wanted me to talk to her daughter about that. I called her daughter by phone, and I told her there is a possibility of right upper lung mass versus pneumonia, and after the discussion, it has been decided to call the salesperson pets [employer] pet supplies to check on that. Probably, we will not be aggressive and probably we will need to get a new CT scan in a few weeks to find out if this is a mass or infection. All this has been explained to the daughter. Chest CT scan showed bilateral lower lobe pneumonia. She is still complaining of shortness of breath. I believe I will continue with the treatment for a couple more days and discharge her to a rehab center/alf. OBJECTIVE: Vital Signs: Temperature 98.3 degrees, pulse 78, respiratory rate 18, blood pressure 147/68, oxygen saturation 100% on 4 L of nasal cannula. HEENT: Head normocephalic, no trauma. PERRLA. Neck: Supple. No JVD. No masses. Central trachea. Chest: Decreased breath sounds mostly at the bases with crepitus and some rhonchi. Cardiovascular: RRR. Abdomen: Soft, nontender. Positive bowel sounds. Extremities: No edema. No clubbing. No cyanosis. Neurological: The patient is awake. She is alert. She is oriented. She has no focal deficits, but generalized weakness. As per the daughter, she has been basically bed bound because she has been falling a lot. LABORATORY: WBC 9.4, hemoglobin 11.6, hematocrit 37.6, platelets 334,000. Sodium 142, potassium 2.8, chloride 97, bicarbonate 34, BUN 13, creatinine 0.6, glucose 135, calcium 9.7. ASSESSMENT AND PLAN: 1. Acute on chronic hypoxemic respiratory failure. Continue with oxygen supplementation. Normally, she uses 2 L of oxygen at home. We will continue with the same management for now. 2. Bilateral lower lobe pneumonia. Continue with the same management for now. She has been placed on vancomycin and Zosyn. Kidney function stable. I will continue with same management. 3. Pneumonia versus right upper lobe mass. I had a conversation with the patient and also the daughter by phone. I have requested an evaluation by the pulmonary doctor. Likely, this patient will need to repeat the CT scanning in a few weeks to see if this was related to a mass or pneumonia. This has been explained to the family member as well, but for now, I will continue with broad-spectrum antibiotics in-house since she is still having some symptoms. 4. Severe chronic obstructive pulmonary disease with moderate exacerbation on admission. Continue with same management. 5. Diabetes. The patient is on insulin. 6. Electrolyte imbalance including hypokalemia, which I will replace, hypomagnesemia that has been corrected before. I will get a new set of laboratory tomorrow. 7. Generalized weakness and physical deconditioning. As per the daughter, she has osteoarthritis at the level of the lower extremities, and because of that, she has been frequently falling. She is basically at this point bed bound, and because of the pneumonia, she has severe weakness. Upon discharge, she will go to a rehab center, but I will put her on physical therapy during this hospitalization to see how she does. cc: Gigi Jenkins MD
[2019-06-22] MEDS: LIPITOR PO SCH (21:34)
[2019-06-22] MEDS: ULTRAM PO PRN (22:13)
--- NOTE | 2019-06-23 02:23 | PULMONOLOGY CONSULTATION ---
DATE: 06/22/2019 REQUESTING CLINICIAN: Dr. Ramirez. REASON FOR CONSULTATION: COPD with lung mass and pneumonia. HISTORY OF PRESENT ILLNESS: Ms Michelle is an 83-year-old white female, jail patient with dementia, COPD, and chronic hypoxemic respiratory failure, who was brought to the emergency room with fevers, increasing shortness of breath, and oxygen desaturation. White blood count was elevated at 19.25 and associated with a left shift. Arterial blood gas revealed acute on chronic hypoxemic respiratory failure with a lactate of 3.5. The patient was initiated on antibiotics and her white blood count has normalized. She underwent a CT scan of the thorax today which reveals emphysema, bibasilar pneumonia, and a spiculated nodule versus vascular abnormality in the right upper lobe. PAST MEDICAL HISTORY: 1. Chronic obstructive pulmonary disease. 2. Dementia. 3. Chronic hypoxemic respiratory failure. 4. Gastroesophageal reflux disease. 5. Rheumatoid arthritis. 6. Hypothyroidism. 7. Dyslipidemia. 8. Hypertension. 9. Morbid obesity with a BMI greater than 40. 10. History of cataract surgery. SOCIAL HISTORY: The patient is a remote smoker. She reports she smoked for many years. No alcohol use. FAMILY HISTORY: Noncontributory to current presentation. REVIEW OF SYSTEMS: Notable for cough, shortness of breath, dyspnea with any exertion. PHYSICAL EXAMINATION: General: Reveals an obese white female resting comfortably and in no distress. Vital Signs: Blood pressure 145/65, heart rate 69, respiratory rate 16, oxygen saturation 96% on 4 L per nasal cannula. HEENT: Pupils are equal and reactive. Oropharynx appears clear. Neck: Supple. Chest: Reveals rhonchi bilaterally with crackles in both lung bases. Cardiac: S1-S2. Abdomen: Obese and soft. Extremities: Reveal trace edema. IMPRESSION: An 83-year-old with: 1. Bibasilar aspiration pneumonia. 2. Spiculated lesion in right upper lobe versus vascular abnormality. 3. Emphysema/chronic obstructive pulmonary disease. 4. Diabetes mellitus. 5. Dementia. 6. Arthritis. DISCUSSION: An 83-year-old with problems outlined above. The patient's primary presentation is related to pneumonia and the radiographic findings are most consistent with aspiration pneumonia. She has acute respiratory failure associated with this process. She also has chronic hypoxemic respiratory failure. She has a small abnormality in the right upper lobe which is more size of a nodule than of a lung mass noted by the radiologist. It is not large enough to biopsy and she is not a candidate for aggressive intervention at this time. RECOMMENDATIONS: 1. Continue oxygen for acute hypoxemic respiratory failure. 2. Continue broad-spectrum antibiotics covering aspiration and institution-acquired pneumonia pathogens. 3. Consider followup CT scan in 4 to 6 weeks. cc: Bonilla Quispe MD
[2019-06-23] MEDS: ZOSYN 3.375 GM in NS 50 ML IV SCH ×4 (03:56→21:48)
[2019-06-23] MEDS: SYNTHROID PO SCH (06:06)
[2019-06-23] MEDS: HUMALOG SUBQ SCH ×4 (06:07→20:22)
[2019-06-23] MEDS: ANORO ELLIPTA 62.5-25 MCG INH INH SCH (07:45)
[2019-06-23] MEDS: DUONEB (A & A) INH SCH ×5 (07:45→23:25)
[2019-06-23 07:53] LABS: AGAP 12; BUN 13 mg/dL (8-22); CALCIUM 10.1 mg/dL (8.8-10.2); CHLORIDE 100 mmol/L (98-107); COSMO 291; CREATININE 0.6 mg/dL (0.5-0.9); ESTIMATED GFR > 60; GLUCOSE 131 mg/dL (70-104); POTASSIUM 3.2 mmol/L (3.5-5.1); SODIUM 145 mmol/L (136-145); TCO2 33 mmol/L (25-35)
[2019-06-23 07:55] LABS: MAGNESIUM 1.4 mg/dL (1.5-2.7)
[2019-06-23] MEDS: LANTUS INSULIN SUBQ SCH (09:17)
[2019-06-23] MEDS: ZYLOPRIM PO SCH (09:18)
[2019-06-23] MEDS: ASPIRIN PO SCH (09:18)
[2019-06-23] MEDS: CYMBALTA PO SCH (09:18)
[2019-06-23] MEDS: PREDNISONE PO SCH (09:18)
[2019-06-23] MEDS ORDERED: MAGNESIUM SULFATE 2 GM/S.W.I. 2 GM/50 ML IVPB IV ONE (09:30)
[2019-06-23] MEDS ORDERED: KLOR-CON PO ONE (09:31)
[2019-06-23] MEDS: LASIX PO SCH (11:40)
[2019-06-23] MEDS: ULTRAM PO PRN (11:46)
--- NOTE | 2019-06-23 13:02 | PROGRESS NOTE ---
DATE: 06/23/2019 SUBJECTIVE: The patient seems to be doing remarkably better today, she is breathing much better. She is having bowel movements. She is tolerating p.o. I will continue with the same management. The Pulmonary Department evaluated this patient and they have recommended to continue with broad- spectrum antibiotics. I will stop the vancomycin, though because the culture is growing gram- negative rods and we need to consider a follow-up CT scan around 4 to 6 weeks. OBJECTIVE: Vital signs: Temperature 97.7 degrees, pulse 56, respiratory rate 18, blood pressure 126/52, oxygen saturation 98 on 4 L of nasal cannula. HEENT: Head normocephalic. No trauma. PERRLA. Neck: Is supple. No JVD. No masses. Central trachea. Chest: Decreased breath sounds mostly at the bases with crepitus and some rhonchi. Cardiovascular: RRR. Abdomen: Soft, protuberant. Extremities: No edema, no clubbing, no cyanosis. Neurological: The patient is awake. She is alert. She is oriented. No focal deficit but generalized weakness. Basically she is bedbound and she has been bedbound for a little bit now. LABORATORY: Sodium 145, potassium 3.2, chloride 100, bicarbonate 33, BUN 13, creatinine 0.6, glucose 131, calcium 10.1, magnesium 1.4. ASSESSMENT AND PLAN: 1. Acute on chronic hypoxemic respiratory failure. Continue with oxygen supplementation. Normally she uses 2 L at home. Continue with same management for now. 2. Bilateral lower lobe pneumonia. Continue with same management for now. She has been placed on vancomycin and Zosyn. I will stop the vancomycin because the sputum culture is showing gram-negative rods. 3. Pneumonia versus right upper lobe mass. This has been evaluated already by Pulmonary Department. They have recommended just to follow up with a CT scan in 4 to 6 weeks. 4. Severe chronic obstructive pulmonary disease with moderate exacerbation on admission. She seems to be doing much better. 5. Diabetes. Continue with continue with insulin. 6. Electrolyte imbalance including hypokalemia and hypomagnesemia. I will replace both. 7. Generalized weakness and physical deconditioning. As per the daughter she has osteoarthritis at the level of the lower extremities and because of that she has been frequently falling. She is basically bedbound at this point, not only because of the osteoarthritis, but the pneumonia as well. She will go to a rehab center. cc: Gigi Jenkins MD
--- NOTE | 2019-06-23 18:11 | PULMONOLOGY PROGRESS NOTE ---
DATE: 06/23/2019 SUBJECTIVE: The patient is awake, alert, and conversant. She reports she feels a little bit better today. She continues to have a wet cough. OBJECTIVE: Vital Signs: The patient has been afebrile for the last 24 hours. Blood pressure 125/56, heart rate 84, respiratory rate 18, oxygen saturation 100%. HEENT: Pupils are equal and reactive. Oropharynx appears clear. neck: Neck is supple. pulmonary: Chest reveals coarse rhonchi bilaterally. Cardiac: S1-S2. Abdomen: Obese and soft. Extremities: Without edema. LABORATORIES: Sputum culture is growing a gram-negative treasure. Sodium 145, potassium 3.2, chloride 100, bicarbonate 33, BUN 13, creatinine 0.6. IMPRESSION: An 83-year-old with: 1. Aspiration pneumonia. 2. Gram-negative organism in sputum. 3. Nonspecific spiculated lesion right upper lobe. This may represent a vascular abnormality. 4. Chronic obstructive pulmonary disease. 5. Diabetes mellitus. 6. Dementia. 7. Arthritis. PLAN: 1. Continue current gram-negative coverage. 2. Continue bronchodilators. 3. Continue oxygen for hypoxemic respiratory failure. 4. Recommend follow-up CT scan in 4 to 6 weeks. cc: Bonilla Quispe MD
[2019-06-23] MEDS: LIPITOR PO SCH (20:21)
[2019-06-24] MEDS: ZOSYN 3.375 GM in NS 50 ML IV SCH ×4 (04:08→22:01)
[2019-06-24] MEDS: HUMALOG SUBQ SCH ×4 (06:12→20:47)
[2019-06-24] MEDS: SYNTHROID PO SCH (06:13)
[2019-06-24] MEDS: ANORO ELLIPTA 62.5-25 MCG INH INH SCH (07:43)
[2019-06-24] MEDS: DUONEB (A & A) INH SCH ×5 (07:43→23:13)
[2019-06-24 08:33] LABS: AGAP 9; BUN 14 mg/dL (8-22); CHLORIDE 98 mmol/L (98-107); COSMO 280; CREATININE 0.7 mg/dL (0.5-0.9); ESTIMATED GFR > 60; GLUCOSE 104 mg/dL (70-104); MAGNESIUM 1.9 mg/dL (1.5-2.7); POTASSIUM 3.5 mmol/L (3.5-5.1); SODIUM 140 mmol/L (136-145); TCO2 33 mmol/L (25-35)
[2019-06-24] MEDS: PREDNISONE PO SCH (08:38)
[2019-06-24] MEDS: LASIX PO SCH (08:38)
[2019-06-24] MEDS: ASPIRIN PO SCH (08:38)
[2019-06-24] MEDS: ZYLOPRIM PO SCH (08:38)
[2019-06-24] MEDS: CYMBALTA PO SCH (08:39)
[2019-06-24] MEDS: LANTUS INSULIN SUBQ SCH (08:46)
--- NOTE | 2019-06-24 14:01 | PROGRESS NOTE ---
DATE: 06/24/2019 SUBJECTIVE: This patient seems to be doing better. She is breathing better. She is having bowel movements. She is tolerating p.o. I will continue with the same management. We have a positive culture that showed Morganella morganii that is sensitive to Zosyn. Upon discharge, probably, I will put this patient on Omnicef which likely it is going to be sensitive to. Hopefully, tomorrow, I will send this patient to her residential/rehab. I will notify the daughter about her followup with a CT scan in 6 weeks or so. OBJECTIVE: Vital Signs: Temperature 97.5 degrees, pulse 86, respiratory rate 18, blood pressure 147/70, oxygen saturation 97% on 3.5 L nasal cannula. HEENT: Head normocephalic. No trauma. PERRLA. Neck: Supple. No JVD. No masses. Central trachea. Chest: Decreased breath sounds, mostly at the bases, with some crepitus and some rhonchi scattered. Cardiovascular: RRR. Abdomen: Soft, protuberant. Extremities: No edema, no clubbing, no cyanosis. Neurological Examination: The patient is awake. She is alert. She is oriented to person and place. No focal deficit but generalized weakness. Basically, this patient is bedbound. Laboratory: Sodium 140, potassium 3.5, chloride 98, bicarbonate 33, BUN 14, creatinine 0.7, glucose 104, calcium 10, magnesium 1.9. ASSESSMENT AND PLAN: 1. Acute on chronic hypoxemic respiratory failure. Continue with oxygen supplementation. Normally, she uses 2 L of oxygen at home. Continue with the same management for now. 2. Bilateral lower lobe pneumonia. Continue with the same management. We have a positive culture that showed Morganella morganii, sensitive to Zosyn. 3. Pneumonia versus right upper lobe mass. The patient has been already evaluated by pulmonary department. She has been recommended to follow up with a CT scan in 4 to 6 weeks. 4. Severe chronic obstructive pulmonary disease with moderate exacerbation on admission. She seems to be doing much better. Continue with oxygen and antibiotics as well. 5. Diabetes. Continue with the same management. 6. Electrolyte imbalance including hypokalemia and hypomagnesemia. They have been already replaced, resolved. 7. Generalized weakness and physical deconditioning. As per the daughter, she has osteoarthritis at the level of the lower extremities and because of that, she has been having frequent falls. She has been lately basically bedbound. cc: Gigi Jenkins MD
--- NOTE | 2019-06-24 18:08 | PULMONOLOGY PROGRESS NOTE ---
DATE: 06/24/2019 SUBJECTIVE: The patient is awake, alert, and conversant. She has a slightly wet cough. She denies shortness of breath at rest. OBJECTIVE: Vital Signs: The patient has been afebrile for the last 24 hours. Blood pressure 147/69, heart rate 79, respiratory rate 16, oxygen saturation 97% on 3 L per nasal cannula. HEENT: Pupils are equal and reactive. Oropharynx appears clear. Neck: Supple. Chest: Reveals rhonchi bilaterally. Cardiac exam: S1, S2. Abdomen: Obese and soft. Extremities: Reveal 1+ peripheral edema. LABORATORIES: Microbiology reveals Morganella morganii on sputum culture. No new CBC today. Sodium 140, potassium 3.5, chloride 98, bicarbonate 33, BUN 14, creatinine 0.7. IMPRESSIONS: An 83-year-old with: 1. Aspiration pneumonia with gram-negative organism in sputum. 2. Nonspecific spiculated lesion in the right upper lobe. 3. Chronic obstructive pulmonary disease. 4. Diabetes mellitus. 5. Dementia. PLAN: 1. Continue current antibiotic regimen. 2. Follow up chest x-ray tomorrow. 3. Continue bronchodilators. 4. Continue oxygen for hypoxemic respiratory failure. 5. Recommend follow-up CT scan in 4 to 6 weeks. She is not a good candidate for biopsy or treatment if the abnormality in the right upper lobe proves to be malignant. cc: Bonilla Quispe MD
[2019-06-24] MEDS: LIPITOR PO SCH (20:47)
[2019-06-24] MEDS: ULTRAM PO PRN (22:05)
[2019-06-25] MEDS: ZOSYN 3.375 GM in NS 50 ML IV SCH ×2 (03:25→11:31)
[2019-06-25] MEDS: SYNTHROID PO SCH (06:13)
[2019-06-25] MEDS: HUMALOG SUBQ SCH ×2 (06:13→11:44)
--- NOTE | 2019-06-25 06:54 | Diag Imaging Result Doc PS360 ---
CHEST-PORTABLE - 06/25/2019 INDICATION: abnormal exam COMPARISON: 06/18/2019 FINDINGS: Stable cardiomegaly. Improved pulmonary vascular congestion. There has been improvement in the diffuse bilateral interstitial infiltrates compatible with improving edema. Stable small to moderate pleural effusion on the left side. IMPRESSION: Overall improved from prior. Electronically signed by Michele Rodriguez 06/25/2019 6:52 AM
--- NOTE | 2019-06-25 08:11 | DISCHARGE SUMMARY ---
ADMISSION DATE: 06/19/2019 DISCHARGE DATE: 06/25/2019 DISCHARGE DIAGNOSES: 1. Acute on chronic hypoxemic respiratory failure. 2. Bilateral lower lobe pneumonia. 3. Pneumonia versus right upper lobe mass evaluated by Pulmonary Department. She needs to follow up in 4 to 6 weeks with [address] scan. 4. Severe chronic obstructive pulmonary disease with moderate exacerbation on admission, on home oxygen. 5. Diabetes. 6. Electrolyte imbalance. 7. Generalized weakness and physical deconditioning. 8. Severe osteoarthritis at the level of the lower extremities, apparently bed-bound. PROCEDURES PERFORMED: 1. Chest x-ray dated 06/18/2019 impression: CHF. 2. Echocardiogram dated 06/19/2019: Showed a normal left ventricular dimension. Ejection fraction at least 60%. 3. Chest CT scan dated 06/21/2019: Bilateral lower lobe pneumonia, pneumonia versus mass in the right upper lobe, severe COPD. 4. Chest x-ray 06/25/2019 impression: Overall improved from prior. HOSPITAL COURSE: An 83-year-old, female, who is a resident of [facility] with a history of gout, dementia, hyperlipidemia, hypertension, CHF, COPD on home O2 was brought to the emergency department, admitted on 06/19/2019 due to shortness of breath. Apparently, she was desaturating at the [place] [facility] and apparently she had a fever. She was evaluated in the emergency department. X-ray showed pneumonia. She was admitted for further treatment and antibiotics. We did a CT scan that showed pneumonia and also a possibility of right upper lobe mass, this has been evaluated by Pulmonary Department, who recommended to do a CT scan in 4 to 6 weeks. I agree with this. The patient seems to be improving on a daily basis. She is feeling much better. She is tolerating p.o. She is having bowel movements. She will be discharged back to her [place] [facility]. PHYSICAL EXAMINATION: Vital signs: Temperature 98.2 degrees, pulse 54, respiratory rate 20, blood pressure 115/4,2 oxygen saturation 96 on 4 L of nasal cannula. HEENT: Head normocephalic, no trauma. PERRLA. Neck: Neck is supple. No JVD. No masses. Central trachea. Chest: Decreased breath sounds mostly at the bases with some crepitus and scattered rhonchi. Cardiovascular: RRR. Abdomen: Abdomen is soft, protuberant. Extremities: No edema, no clubbing, no cyanosis. Neurological examination: Patient is awake. She is alert. She is oriented to person and place. No focal deficit, but generalized weakness. Basically, apparently this patient is bed-bound. LABORATORY: Pending lab work at this moment. Laboratory from yesterday: Sodium 140, potassium 3.5, chloride 98, bicarbonate 33. BUN 14, creatinine 0.7, glucose 104, calcium 10, magnesium 1.9. DISCHARGE MEDICATIONS: 1. DuoNeb 3 mL inhaler every 2 hours as needed for shortness of breath. 2. Allopurinol 300 mg p.o. daily. 3. Aspirin 81 mg p.o. daily. 4. Lipitor 10 mg p.o. at bedtime. 5. Calcium 600+ vitamin D one tablet p.o. daily. 6. Cefdinir 300 mg p.o. b.i.d. to complete 5 more days. 7. Vitamin D 3 1000 units p.o. daily. 8. Vitamin B 12 500 mcg p.o. daily. 9. Dexlansoprazole 60 mg p.o. daily. 10. Diclofenac 1% gel 1 g top b.i.d. as needed. 11. Duloxetine 40 mg p.o. daily. 12. Flonase 50 mcg inhaler daily. 13. Arnuity Ellipta 200 mcg inhaler daily. 14. Lasix 40 mg p.o. daily. 15. Gabapentin 600 mg p.o. t.i.d. 16. Lantus 15 units subcutaneous daily. 17. Levothyroxine 150 mcg p.o. daily. 18. Memantine/donepezil 28/10 mg capsule p.o. daily. 19. Calmoseptine ointment 1 g top as needed. 20. Thera M tablet one tablet p.o. daily. 21. Potassium chloride 10 mEq p.o. daily. 22. Protein liquid fortifier 30 mL p.o. daily. 23. Tramadol 50 mg p.o. as needed. 24. Anoro Ellipta 62.5/25 mcg inhaler daily. FOLLOWUP: Follow up with Dr. Quispe and follow with her primary doctor. This patient needs to get a new CT scan in 4 to 6 weeks. Please call for an appointment with Dr. Quispe and the order for CT scan. cc: Gigi Jenkins MD
[2019-06-25] MEDS: DUONEB (A & A) INH SCH ×3 (08:17→16:01)
[2019-06-25] MEDS: ANORO ELLIPTA 62.5-25 MCG INH INH SCH (08:17)
[2019-06-25 09:17] LABS: AGAP 13; BUN 14 mg/dL (8-22); CALCIUM 9.8 mg/dL (8.8-10.2); CHLORIDE 98 mmol/L (98-107); COSMO 280; CREATININE 0.8 mg/dL (0.5-0.9); ESTIMATED GFR > 60; GLUCOSE 100 mg/dL (70-104); POTASSIUM 3.4 mmol/L (3.5-5.1); SODIUM 140 mmol/L (136-145); TCO2 29 mmol/L (25-35)
[2019-06-25] MEDS: CYMBALTA PO SCH (11:30)
[2019-06-25] MEDS: ZYLOPRIM PO SCH (11:30)
[2019-06-25] MEDS: LASIX PO SCH (11:31)
[2019-06-25] MEDS: PREDNISONE PO SCH (11:31)
[2019-06-25] MEDS: ASPIRIN PO SCH (11:31)
[2019-06-25] MEDS: LANTUS INSULIN SUBQ SCH (11:43)
[2019-06-25 16:07] VITALS: BP 123/61
== END 2019-06-25 17:45 | DRG 871 ==
LOC: ED 19:58 → SUATTDRO 06-19 00:55 → 3N 06-19 00:55
PROVIDERS: ATTEND Internal Medicine